=== PATIENT | female | born 1940 | race Caucasian/White ===

== ENCOUNTER → 2018-01-09 | Outpatient (CLI) | payer MEDICARE, OTHER | END | disposition home or self-care (01) | LOC: KCIC 15:03 | DX: M51.36 Other intervertebral disc degeneration, lumbar region (principal); M51.37 Other intervertebral disc degeneration, lumbosacral region; K44.9 Diaphragmatic hernia without obstruction or gangrene; M54.42 Lumbago with sciatica, left side; M51.26 Other intervertebral disc displacement, lumbar region; I70.0 Atherosclerosis of aorta | CPT/HCPCS: 72072; 72110 ==